=== PATIENT | female | born 1945 | race Caucasian/White ===

== ENCOUNTER 2023-12-18 08:55 | Day surgery (SDC) | payer MEDICARE, OTHER ==
[~2023-12-18 08:55] MED LIST: HYDROmorphone 0.5 MG/0.5 ML SYRINGE IVP PRN; metroNIDAZOLE-NS PMX 500 MG in SALINE 1 100ML.BAG IVPB PRN
[2023-12-18] MEDS: IV FLUID CONTINUATION 1,000 ML IV ONE (09:14)
[2023-12-18 09:31] VITALS: TEMP 97.3
[2023-12-18] MEDS: LACTATED RINGERS 1,000 ML IV SCH (09:46)
[2023-12-18] MEDS: ONDANSETRON 4 MG/2 ML VIAL IVP ONE (09:47)
[2023-12-18] MEDS: DEXAMETHASONE SOD PHOSPHATE 4 MG/ML 1 ML VIAL IV ONE (09:49)
[2023-12-18] MEDS: FAMOTIDINE 20 MG/2 ML VIAL IV PRN (09:49)
[2023-12-18] MEDS ORDERED: fentaNYL (PF) 50 MCG/ML 2 ML AMP ONE (10:13)
[2023-12-18] MEDS ORDERED: PROPOFOL 10 MG/ML 20 ML VIAL IV ONE (10:13)
[2023-12-18] MEDS ORDERED: PHENYLEPHRINE-0.9% NACL SYG 1,000 MCG/10 ML SYRINGE ONE (10:13)
[2023-12-18] MEDS ORDERED: GLYCOPYRROLATE 0.2 MG/ML 2 ML VIAL ONE (10:13)
[2023-12-18] MEDS ORDERED: ROCURONIUM 10 MG/ML (5 ML VIAL) IV ONE (10:13)
[2023-12-18] MEDS ORDERED: NEOSTIGMINE 1 MG/ML 10 ML VIAL ONE (10:13)
[2023-12-18] MEDS ORDERED: SUCCINYLCHOLINE CHLORIDE 200 MG/10 ML VIAL IV ONE (10:13)
[2023-12-18] MEDS ORDERED: LIDOCAINE 1% INJ 10MG/ML (20 ML MDV) ONE (10:13)
[2023-12-18] MEDS: LIDOCAINE 1%-EPI 1:100,000 20 ML VIAL SQ ONE ×2 (10:40)
[2023-12-18] MEDS: BACITRACIN OINT 1 EACH PACKET TOPICAL ONE (11:24)
[2023-12-18] MEDS: BACITRACIN ZINC 500 UNIT/GM OINT 28.4 GM TUBE TOPICAL ONE (11:25)
--- NOTE | 2023-12-18 11:38 | P.OP ---
Date of Procedure: 12/18/23 Preoperative Diagnosis: thyroglossal duct cyst Postoperative Diagnosis: same Procedure(s) Performed: excision thyroglossal duct cyst including Enrique procedure Anesthesia: GETA Surgeon: Ti Hagen Estimated Blood Loss (ml): 5 Pathology: other (midline neck cyst) Condition: stable Disposition: PACU Indications for Procedure: this 78-year-old white female who has a persistent midline neck mass. Workup including CT and fine-needle aspiration appear To be consistent with a thyroglossal duct cyst Operative Findings: approximate 2.5 cm cystic structure midline neck encountered deep to and a twin the strap muscles and emanating from the area of the hyoid bone. There was some thick milky fluid within this cyst. This was excised grossly entirely including the midportion of the hyoid bone Description of Procedure: the patient was brought in the operative suite and placed in a supine position. Patient underwent induction of general anesthesia with oral endotracheal intubation without difficulty. The patient was prepped and draped in usual aseptic fashion. 1% lidocaine with [id number] epinephrine was infused subcutaneouslyin field block fashion. This was left to work for 7 minutes vasoconstrictive effect. A transverse incision was made directly over this lesion and carried through the skin and subcutaneous tissues down to the strap muscles. The strap muscles were then split in the midline and the cyst was encountered. This was then excised from the surrounding tissue tracking down to the hyoid bone. At the hyoid bone the midportion hyoid bone was removed with the lesion grossly entirely. There did not appear to be any further tract deeply. A small pledget of Surgicel was placed at the base of the wound. There is excellent hemostasis noted. The wound was copiously irrigated sterile normal saline and again good hemostasis noted. The strap muscles were then reapproximated with a 3-0 Vicryl suture deep and superficial subcutaneous layers were closed with inverted interrupted 4-0 Vicryl suture skin closed with running locking 5-0 Prolene suture. There was excellent hemostasis and then minimal space and therefore a drain did not appear to be required. Estrace ointment and sterile dressing was placed. The patient was then allowed to emerge from general anesthesia having tolerated procedure well was extubated in the operating suite and transferred to postop recovery in satisfactory condition.
[2023-12-18] MEDS: hydrALAZINE HCL 20 MG/ML 1 ML VIAL IVP ONE (11:49)
[2023-12-18 12:55] VITALS: RESP 18
[2023-12-18 13:22] VITALS: BP 169/71; PULSE 92
== END 2023-12-18 13:25 | disposition home or self-care (01) ==
LOC: OR 08:55
PROVIDERS: ATTEND Otolaryngology
CPT/HCPCS: 88305